=== PATIENT | female | born 1970 | race Caucasian/White ===

== ENCOUNTER 2024-07-12 14:08 | Emergency (ER) | payer OTHER ==
[~2024-07-12] VITALS: Ht 162.6 cm; Wt 59.0 kg
[2024-07-12 19:49] LABS: BASOPHILS % (AUTO) 0.5 % (0.0-2.0); EOSINOPHILS # (AUTO) 0.1 K/uL (0.0-0.7); EOSINOPHILS % (AUTO) 1.9 % (0.0-6.0); HEMATOCRIT 38 % (33-45); HEMOGLOBIN 12.1 g/dL (11.5-14.8); LYMPHOCYTES # (AUTO) 2.2 K/uL (0.8-4.8); LYMPHOCYTES % (AUTO) 41.8 % (20.0-44.0); MEAN CORPUSCULAR HEMOGLOBIN 25 PG (26.0-33.0); MEAN CORPUSCULAR HGB CONC 32 g/dl (31.0-36.0); MEAN CORPUSCULAR VOLUME 79 fL (82-100); MONOCYTES # (AUTO) 0.6 K/uL (0.1-1.30); MONOCYTES % (AUTO) 10.6 % (2.0-12.0); NEUTROPHILS # (AUTO) 2.4 K/uL (1.8-8.9); NEUTROPHILS % (AUTO) 45.2 % (43.0-81.0); PLATELET COUNT (AUTO) 212 K/uL (150-450); RED BLOOD CELL COUNT(AUTO) 4.85 MIL/uL (4.0-5.2); RED CELL DISTRIBUTION WIDTH 18.5 % (11.5-15.0); WHITE BLOOD COUNT (AUTO) 5.2 K/uL (4.3-11.0)
[2024-07-12 20:02] LABS: CALCIUM, SERUM 8.6 mg/dL (8.5-10.1); CREATININE 0.5 mg/dL (0.6-1.3); POTASSIUM 4.1 mmol/L (3.5-5.1)
[2024-07-12] MEDS ORDERED: IV NS 0.9% 250 ML IV ONE (20:20)
[2024-07-12] MEDS ORDERED: IOHEXOL-300 100 ML VIAL IV ONE (20:20)
[2024-07-12 22:47] VITALS: BP 109/55; TEMP 98.2; O2SAT 98
[2024-07-12] MEDS ORDERED: IBUP-1955 PO (23:08)
[2024-07-12] MEDS ORDERED: ACET-2605 PO (23:08)
== END 2024-07-12 23:29 | disposition home or self-care (01) ==
LOC: ER 14:13
DX: U07.1 COVID-19 (principal); J02.9 Acute pharyngitis, unspecified; M79.10 Myalgia, unspecified site; R22.1 Localized swelling, mass and lump, neck
CPT/HCPCS: 99285; 70491; 87426; 87804 ×2; 85025; 80048; 87070; 36415; 87880; J7050; Q9967; 86403-TC